=== PATIENT | male | born 1990 | race Caucasian/White ===

== ENCOUNTER 2019-02-10 23:10 | Emergency (ER) | payer MEDICAID ==
[~2019-02-10] VITALS: Ht 167.6 cm; Wt 72.6 kg
[2019-02-10 23:45] VITALS: BP 156/72
== END 2019-02-10 23:40 ==
LOC: ER 23:13
DX: Z02.89 Encounter for other administrative examinations (principal); F17.210 Nicotine dependence, cigarettes, uncomplicated; F12.90 Cannabis use, unspecified, uncomplicated